=== PATIENT | female | born 2000 | race Caucasian/White ===

== ENCOUNTER 2023-05-30 15:47 | Emergency (ER) | payer OTHER, SELFPAY ==
[2023-05-30 15:50] VITALS: BP 144/112
[2023-05-30 16:13] LABS: % Basophils 0.5 % (0-2); % Immature Granulocytes 0.2 % (0-0.5); % Lymphocytes 26.6 % (20.5-51.1); % Monocytes 5.1 % (1.7-9.3); % Neutrophils 66.6 % (42.2-75.2); Absolute Basophils 0.1 10^3/uL (0-0.2); Absolute Eosinophils 0.1 10^3/uL (0-0.7); Absolute Lymphocytes 2.6 10^3/uL (1.2-3.4); Absolute Monocytes 0.5 10^3/uL (0.1-0.6); Absolute Neutrophils 6.5 10^3/uL (1.4-6.5); Hematocrit 40.3 % (37.0-47.0); Hemoglobin 13.5 g/dL (12.0-16.0); Mean Corp Hgb Conc. 33.5 g/dL (33.0-37.0); Mean Corpuscular Hgb 26.6 pg (27.0-31.0); Mean Corpuscular Volume 79.5 fL (81.0-99.0); Mean Platelet Volume 8.8 fL (7.4-10.4); Nucleated Red Blood Cells % 0 %; Platelet Count 261 10^3/uL (130-400); Red Blood Cell Count 5.07 10^6/uL (4.20-5.40); Red Cell Dist. Width 14.3 % (11.5-14.5); White Blood Cell Count 9.8 10^3/uL (4.8-10.8)
[2023-05-30 16:27] LABS: HCG, Serum Qualitative Screen Negative
[2023-05-30 16:30] LABS: ALT (SGPT) 22 U/L (0-35); AST (SGOT) 27 U/L (14-36); Albumin 4.6 g/dl (3.5-5.0); Alkaline Phosphatase 48 U/L (38-126); Blood Urea Nitrogen 14 mg/dl (7-17); Calcium 9.6 mg/dl (8.4-10.2); Carbon Dioxide 23 mmol/L (22-30); Chloride 103 mmol/L (98-107); Glucose 110 mg/dl (70-99); Potassium 3.7 mmol/L (3.5-5.1); Sodium 137 mmol/L (135-145); Total Bilirubin 0.8 mg/dl (0.2-1.3); Total Protein 7.6 g/dl (6.3-8.2); eGFR > 60.00
--- NOTE | 2023-05-30 20:08 | ED.GENMED ---
History of Present Illness
General
Chief Complaint: Headache
Source: patient
Exam Limitations: none
Time Seen by Provider: 05/30/23 19:40
Nursing documentation reviewed up to this point in time: agreed with
Travel History
Have you had any contact with someone who has COVID-19?: No
Do you have any symptoms of coronavirus? Fever > 100 degrees, chills, cough, shortness of breath, sore throat, loss of taste or smell, muscle aches, or headache?: No
History of Present Illness
History of Present Illness:
22-year-old female with history of GERD presents stating she has had daily headaches since November 2022. She states headaches are almost every day, constant pressure behind her eyes, band around her head, if she squeezes her neck really hard it
helps some of the pain. She was awakened at 10 AM today with pain in the left side base of her skull which was pulsating, it gets worse with walking and turning her head to the right. She has taken an occasional Tylenol or ibuprofen with no relief
of her headaches. Has taken nothing for this headache. She denies N/V/D/C. She denies weakness or numbness in her extremities. No photophobia. States her headache on arrival was 9/10 but at this time it is 5/10 she states this all started in
January when she went to the eye doctor and they told her she had 'nystagmus,'
She was then evaluated at [facility] which told her her eyes were healthy but they did see the nystagmus and told her 'it is a neuro thing.' She has not been able to get into any neurologist for months until finally she now has an appointment in
early June with a headache specialist
There is no significant change in her headaches, she wants a head CT for reassurance.
Past History
Past History
ED Past Medical History: Asthma and GERD
ED Past Surgical History: None
Social History
Tobacco: Non-smoker
Personal: Single
Living: with family
Employment: Employed
Review of Systems
Review of Systems
Allergies reviewed?: Yes
All Other Systems: ROS reviewed and negative except as documented in HPI and ROS
Constitutional: Denies fever
Respiratory: Denies trouble breathing
Cardiac: Denies chest pain
ABD/GI: Denies abdominal pain or nausea
Musculoskeletal: Reports no symptoms
Skin: Reports no symptoms
Neurological: Reports headache; Denies dizzy, weakness or numbness
Phy Exam
Physical Exam
Physical Exam:
GENERAL: No acute distress. A&Ox3.
CONSTITUTIONAL: Afebrile.
EYES: PERRL, conjunctivae normal
Neck: Supple
ENMT: moist mucus membranes, Pharynx nl, TMs normal
RESPIRATORY: Regular respirations, nonlabored, lungs clear.
CARDIOVASCULAR: Regular rate and rhythm, no murmurs, no rubs.
GI: Soft, nontender, normal BS
MUSCULOSKELETAL: Moves with ease. Well perfused.
SKIN: Warm, dry, pink
PSYCH: Normal mood and affect. Well kept, interactive and appropriate
NEUROLOGIC: Awake, alert and oriented. No focal neurological deficit. Cranial nerves II through XII intact ambulates well with steady gait.
Course
Orders/Labs/Results
Orders:
Orders
05/30/23 15:54
Test Result ONCE
05/30/23 15:59
CBC/With Diff [Complete Blood Count/With Diff] Urgent
Comprehensive Metabolic Panel Urgent
HCG, Serum Qualitative Screen Urgent
05/30/23 20:04
Ketorolac [Toradol] 15 mg IV NOW STA
05/30/23 20:05
CT Head W/o Iv Contrast Urgent
Comment:
Reason For Exam: chronic headaches, worse today
0.9% Sodium Chloride 1000 ml [Nss] 1,000 ml IV BOLUS
Abnormal Lab Results
05/30/23
15:59
MCV 79.5 L fL
(81.0-99.0)
MCH 26.6 L pg
(27.0-31.0)
Glucose 110 H mg/dl
(70-99)
05/30/23 15:59
05/30/23 15:59
Vital Signs
Initial and Last Documented VS:
Initial Vital Signs
Temp Pulse Resp BP Pulse Ox
97.8 F 73 18 144/112 100
05/30/23 15:50 05/30/23 15:50 05/30/23 15:50 05/30/23 15:50 05/30/23 15:50
Last Documented Vital Signs
Temp Pulse Resp BP Pulse Ox
98.7 F 80 20 144/80 98
05/30/23 20:29 05/30/23 22:37 05/30/23 22:37 05/30/23 22:37 05/30/23 22:37
MDM/Problems Addressed
Differential Diagnosis Includes:
Migraine, tension h/a
MDM/Problems Addressed:
22-year-old female with history of GERD presents stating she has had headaches since November 2022. She states headaches are almost every day, constant pressure behind her eyes, band around her head, if she squeezes her neck really hard it helps
some of the pain. She was awakened at 10 AM today with pain in the left side base of her skull which was pulsating, it gets worse with walking and turning her head to the right. She has taken an occasional Tylenol or ibuprofen with no relief of
her headaches. Has taken nothing for this headache. She denies N/V/D/C. She denies weakness or numbness in her extremities. No photophobia. States her headache on arrival was 9/10 but at this time it is 5/10 she states this all started in
January when she went to the eye doctor and they told her she had 'nystagmus,'
She was then evaluated at [facility] which told her her eyes were healthy but they did see the nystagmus and told her 'it is a neuro thing.' She has not been able to get into any neurologist for months until finally she now has an appointment in
early June with a headache specialist
Patient is afebrile, NAD
05/30/[address] normal
CBC, CMP with no clinically significant abnormality
05/30/2023 2230 PM
Pt states headache is gone.
Upon discharge, pt ambulated out with steady gait.
*Critical Care Note
Total Time (30-74mins, 75-104mins- exclusive of procedures): Not Applicable
ED Attending Note
-
Portions of this chart may have been created with voice recognition software.� Occasional wrong word or��sound alike� substitutions may have occurred due to the inherent limitations of voice recognition software.
Discharge Plan
Departure
Patient Disposition: Home (Routine Discharge)
Date of Disposition: 05/30/23
Time of Disposition: 21:13
Patient with high blood pressure during this ER visit?: No
Condition: Good
Discharge Problem:
Headache
Instructions: Headache, Adult (DC)
Prescriptions:
No Action
omeprazole
40 mg PO DAILY
Referrals:
Your, Headache Specialist [Other] - Keep scheduled appt
Activity Restrictions/Additional Instructions:
As we discussed, your head CT scan is normal.
Your lab work shows nothing worrisome.
Try combining Ibuprofen 400 mg with Tylenol 500 mg every 6 hours as needed for headache
Interventions
Interventions:
*Risk Screen - Suicide Last Done: 05/30/23 15:50
*General Assessment Last Done: 05/30/23 15:50
*Neglect/Abuse Screening Last Done: 05/30/23 15:50
ED- Fall Risk Assessment Last Done: 05/30/23 20:32
*ED COVID-19 Vaccine History Last Done: 05/30/23 20:32
*Nursing Disposition Last Done: 05/30/23 22:43
ED- Neurological Assessment Last Done: 05/30/23 20:32
Discharge Date and Time
Discharge Date/Time: 05/30/23 22:43
[2023-05-30 20:28] VITALS: BMI 21.1
[2023-05-30 20:29] VITALS: BP 108/76
[2023-05-30] MEDS: NSS 1000 IV (21:00)
[2023-05-30] MEDS: TORADOL 15 MG IV (21:00)
[2023-05-30 21:14] VITALS: BP 110/72
[2023-05-30 22:37] VITALS: BP 144/80
== END 2023-05-30 22:43 | disposition home or self-care (01) ==
LOC: EMR 15:47
PROVIDERS: Emergency Medicine; EMERGENCY PHYSICIAN Student in an Organized Health Care Education/Training Program; FAMILY PHYSICIAN Internal Medicine
DX: R51.9 Headache, unspecified (principal); K21.9 Gastro-esophageal reflux disease without esophagitis
CPT/HCPCS: 99284; 96374; 96361; 70450; 80053; 84703; 85025

== ENCOUNTER 2024-03-03 07:50 | Emergency (ER) | payer OTHER, SELFPAY ==
[2024-03-03 07:54] VITALS: BP 130/98
[2024-03-03 08:32] LABS: COVID-19 Antigen Negative (Negative)
[2024-03-03 08:38] VITALS: BMI 19.9
[2024-03-03] MEDS: ZITHROMAX 500 MG PO (08:55)
[2024-03-03] MEDS: TYLENOL 650 MG PO (08:55)
[2024-03-03] MEDS: AUGMENTIN 875 MG/125 MG 1 TABLET PO (08:56)
[2024-03-03] MEDS: TORADOL 30 MG IM (08:59)
[2024-03-03 09:18] LABS: HCG, Urine Qualitative Screen Negative
--- NOTE | 2024-03-03 09:40 | ED.GENMED ---
History of Present Illness
General
Chief Complaint: Chest Pain
Source: patient
Exam Limitations: none
Time Seen by Provider: 03/03/24 08:11
Nursing documentation reviewed up to this point in time: agreed with
History of Present Illness
History of Present Illness:
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
shortness of breath and chest pain this morning. Feels similar to previous episodes of pneumonias. Described as an achy discomfort to the right side of the chest to mild shortness of breath. Denies nausea vomiting numbness weakness. Able to
swallow and tolerate by mouth.
Past History
Past History
ED Past Medical History: Asthma and GERD
ED Past Surgical History: None
Social History
Tobacco: Non-smoker
Personal: Single
Living: with family
Employment: Employed
Review of Systems
Review of Systems
Allergies reviewed?: Yes
All Other Systems: ROS reviewed and negative except as documented in HPI and ROS
Phy Exam
Physical Exam
Physical Exam:
GENERAL: Alert , in no apparent distress
EYE: pupils equal and reactive
NECK: Supple, no significant adenopathy.
ENT: o/p clr, mmm.
CARDIAC: Regular rate and rhythm .
LUNGS: Rales right sided lung, left side clear breath sounds bilaterally, no acute respiratory distress, no wheezes/rales/rhonchi
ABDOMEN: Soft, without focal tenderness, no r/g, no cvat
NEUROLOGICAL: Alert and oriented, no focal neuro deficits
SKIN: Warm and dry, skin intact.
MUSCULOSKELETAL: No edema, well perfused.
PSYCH: Normal and appropriate interaction.
Scores
Heart Score for Chest Pain Patients
STEMI patient?: Not applicable
History: Slightly or Non-Suspicious
ECG: Normal
Age: </= 45 years
Risk Factors: No Risk Factors
Troponin: </= Normal Limit
Heart Score for Chest Pain Patients: 0
Heart Score Risk: 2.5% MACE over next 6 weeks
Course
Orders/Labs/Results
Orders:
Orders
03/03/24 07:51
ECG [Electrocardiogram (*1)] Urgent
Reason for Study: Chest Pain
EKG- Treatment ONCE
03/03/24 08:01
CXR2 [CR Chest - 2 Views ] Urgent
Comment:
Reason For Exam: chest pain and SOB
03/03/24 08:02
COVID-19 Antigen Urgent
Source: Nasal Swab
Influenza A+B Rapid Molecular Urgent
FRANCESCA Source: Nasal Swab
Specimen Description:
03/03/24 08:34
Amoxicillin 875 mg/Clav 125 mg [Augmentin 875 mg/125 mg] 1 tablet PO NOW STA
Azithromycin [Zithromax] 500 mg PO NOW STA
03/03/24 08:35
Acetaminophen [Tylenol] 650 mg PO NOW STA
Ketorolac [Toradol] 30 mg IM NOW STA
Test Result ONCE
03/03/24 09:02
, Urine Qualitative Screen [HCG, Urine Qualitative Screen] Urgent
Date Specimen was Collected: 03/03/24
Time Specimen was Collected: 08:37
03/03/24 09:38
Ipratropium/Albuterol Sulfate [Duoneb] 3 ml INH R NOW ONE
Vital Signs
Initial and Last Documented VS:
Initial Vital Signs
Temp Pulse Resp BP Pulse Ox
98.6 F 95 18 130/98 98
03/03/24 07:54 03/03/24 07:54 03/03/24 07:54 03/03/24 07:54 03/03/24 07:54
Last Documented Vital Signs
Temp Pulse Resp BP Pulse Ox
98.6 F 76 15 117/79 100
03/03/24 07:54 03/03/24 09:42 03/03/24 09:42 03/03/24 09:42 03/03/24 09:42
MDM/Problems Addressed
MDM/Problems Addressed:
23-year-old female presenting to the emergency department today with concerns of chest pain shortness of breath. Started off with viral-like illness the day prior. Upon arrival here vital signs normal patient no distress patient does have rales to
the right side of the lungs which correlate with the x-ray consistent with likely pneumonia. Patient started on antibiotics. Due to her recurrent nature of pneumonia's she was given extended coverage with Augmentin and azithromycin. Otherwise
patient generally well-appearing here in no distress stable for outpatient management of this return precautions were given.
*Critical Care Note
Total Time (30-74mins, 75-104mins- exclusive of procedures): Not Applicable
ED Attending Note
-
Portions of this chart may have been created with voice recognition software.� Occasional wrong word or��sound alike� substitutions may have occurred due to the inherent limitations of voice recognition software.
Discharge Plan
Departure
Patient Disposition: Home (Routine Discharge)
Date of Disposition: 03/03/24
Time of Disposition: 10:07
Patient with high blood pressure during this ER visit?: No
Condition: Good
Covid-19: Not Applicable
Discharge Problem:
Pneumonia
Instructions: Pneumonia in adults
Prescriptions:
New
amoxicillin-pot clavulanate 875-125 mg tablet
1 tab PO BID 7 Days Qty: 14 0RF
azithromycin 500 mg tablet
500 mg PO DAILY 2 Days Qty: 2 0RF
No Action
nortriptyline 10 mg Capsule
10 mg PO DAILY
albuterol sulfate 90 mcg/actuation Hfa Aerosol Inhaler
2 puff INHALATION PRN PRN (Reason: sob)
Depo-Provera
1 dose IM Q3M
Ivermedicine
1 dose topical DAILY
Sulfate Face Wash
1 dose topical DAILY
Referrals:
Yocasta Martinez DO [Family Provider] -
Activity Restrictions/Additional Instructions:
You came to the emergency department today with concerns of respiratory symptoms consistent with pneumonia. Please take the prescribed antibiotics and follow-up closely with your primary care doctor. Return to the emergency department any
worsening, new or concerning symptoms.
Interventions
Interventions:
*Risk Screen - Suicide Last Done: 03/03/24 07:54
*Neglect/Abuse Screening Last Done: 03/03/24 07:54
*ED COVID-19 Vaccine History Last Done: 03/03/24 07:54
ED- Cardiac Assessment Last Done: 03/03/24 08:40
Discharge Date and Time
Print Language: MOLDOVAN
[2024-03-03 09:42] VITALS: BP 117/79
[2024-03-03] MEDS: DUONEB 3 ML INH (09:46)
[2024-03-03 10:23] VITALS: BP 116/81
== END 2024-03-03 10:24 | disposition home or self-care (01) ==
LOC: EMR 07:50
PROVIDERS: Emergency Medicine; Physician Assistant; EMERGENCY PHYSICIAN Student in an Organized Health Care Education/Training Program; FAMILY PHYSICIAN Internal Medicine
DX: J18.9 Pneumonia, unspecified organism (principal); J45.909 Unspecified asthma, uncomplicated; K21.9 Gastro-esophageal reflux disease without esophagitis; Z01.810 Encounter for preprocedural cardiovascular examination
CPT/HCPCS: 99283; 94640; 71046; 81025; 87502; 87811; 93005

== ENCOUNTER 2024-04-23 14:19 | Emergency (ER) | payer OTHER, SELFPAY ==
[2024-04-23 14:21] VITALS: BP 96/60
--- NOTE | 2024-04-23 14:45 | ED.GENMED ---
History of Present Illness
General
Chief Complaint: Abdominal Symptoms
Source: patient
Time Seen by Provider: 04/23/24 14:37
History of Present Illness
History of Present Illness:
23-year-old female presents to the emergency room complaining of nausea, vomiting and abdominal discomfort. Symptoms began earlier this morning. Patient initially felt weak she had a fever due to chills. Nausea vomiting started and she is unable
to keep anything down since then. She has also developed a migraine. She does have a history of migraines. Coughing is not a major component of her symptoms at this time. She does not feel short of breath.
Past History
Past History
ED Past Medical History: Asthma and GERD
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
Social History
Tobacco: Non-smoker
Personal: Single
Living: with family
Employment: Employed
Phy Exam
Physical Exam
Physical Exam:
General: Awake, Alert, Oriented X3. Appears uncomfortable due to nausea
Vitals: Tachycardic
Head: Atraumatic
Eyes: Pupils equal, EOMI
Throat: Airway intact, no exudates, dry mucosa
Neck: Trachea midline
Lungs: Clear and equal b/l
Heart: Regular rate, no murmurs
Abd: Soft, tender diffusely, no rebound, No pulsatile mass
Neuro: Nonfocal
Skin: Warm, dry, no rash
Extremities: pulses equal b/l, no edema
Course
Orders/Labs/Results
Orders:
Orders
04/23/24 14:25
Electrocardiogram (*1) Urgent
Reason for Study: Tachycardia
EKG- Treatment ONCE
Test Result ONCE
04/23/24 14:43
Diphenhydramine [Benadryl] 25 mg IV NOW STA
Prochlorperazine [Compazine] 10 mg IV NOW STA
04/23/24 14:44
Lactated Ringers [Lr] 1,000 ml IV BOLUS
04/23/24 15:09
COVID-19 Antigen Urgent
Source: Nasal Swab
Complete Blood Count/With Diff Urgent
Comprehensive Metabolic Panel Urgent
HCG, Serum Qualitative Screen Urgent
Lipase Urgent
TSH Reflex To Free T4 Urgent
Comment: ADD ON
Influenza A+B Rapid Molecular Urgent
FRANCESCA Source: Nasal Swab
Specimen Description:
04/23/24 16:37
Ondansetron Injectable [Zofran] 4 mg .ROUTE .STK-MED ONE
04/23/24 16:38
Ondansetron Injectable [Zofran] 4 mg IV NOW STA
04/23/24 16:48
Cardiac Monitoring- Treatment ONCE
04/23/24 18:43
Electrocardiogram (*1) Urgent
Reason for Study: Tachycardia
EKG- Treatment ONCE
04/23/24 18:44
Add On- LAB Urgent
Tests Added?: tsh reflex t4
Abnormal Lab Results
04/23/24
15:09
WBC 13.9 H 10^3/uL
(4.8-10.8)
RBC 5.60 H 10^6/uL
(4.20-5.40)
MCV 74.6 L fL
(81.0-99.0)
MCH 24.5 L pg
(27.0-31.0)
MCHC 32.8 L g/dL
(33.0-37.0)
Abs Immat Gran (auto) 0.1 H 10^3/uL
(0-0.05)
Absolute Neuts (auto) 12.8 H 10^3/uL
(1.4-6.5)
Absolute Lymphs (auto) 0.4 L 10^3/uL
(1.2-3.4)
Immature Gran % 0.6 H %
(0-0.5)
Neutrophils % 92.3 H %
(42.2-75.2)
Lymphocytes % 2.7 L %
(20.5-51.1)
Carbon Dioxide 20 L mmol/L
(22-30)
Glucose 126 H mg/dl
(70-99)
ALT 39 H U/L
(0-35)
Albumin 5.3 H g/dl
(3.5-5.0)
04/23/24 15:09
04/23/24 15:09
Vital Signs
Initial and Last Documented VS:
Initial Vital Signs
Temp Pulse Resp BP Pulse Ox
99.4 F 168 18 96/60 99
04/23/24 14:21 04/23/24 14:21 04/23/24 14:21 04/23/24 14:21 04/23/24 14:21
Last Documented Vital Signs
Temp Pulse Resp BP Pulse Ox
98.9 F 162 18 136/89 97
04/23/24 17:30 04/23/24 19:00 04/23/24 14:21 04/23/24 18:39 04/23/24 18:30
MDM/Problems Addressed
Differential Diagnosis Includes:
COVID, influenza, other viral illness, pancreatitis
MDM/Problems Addressed:
Patient presents to the emergency room complaining of nausea vomiting and inability tolerate oral intake. Patient also developed a migraine. She feels much better after treatment here. However she continues to have a sinus tachycardia. I did
review the EKG with Dr. Morse. He agrees that it is sinus tachycardia and there is no need to treated and of itself. Patient is adequately hydrated now she is able to urinate. She feels fine and is anxious to be discharged. TSH added onto
blood in lab. Patient to be discharged and will follow-up with cardiology as an outpatient. Have given her contact information for [facility] encouraged her to call tomorrow morning to make an appointment.
*Pulse Oximetry
Patient hypoxic: no
*EKG
Interpreted by ED Provider?: Yes
Interpretation: abnormal
Heart Rate: 156
Rate: tachycardiac
Rhythm: sinus tachycardia
[place]: normal axis
Interval: normal interval
QRS Pattern: normal QRS
Ischemia: no ischemia
*Slab Tripper Interpretation
Rate: tachycardiac
Interpretation: abnormal
Rhythm: sinus tachycardia
*Critical Care Note
Total Time (30-74mins, 75-104mins- exclusive of procedures): Not Applicable
ED Attending Note
-
Portions of this chart may have been created with voice recognition software.� Occasional wrong word or��sound alike� substitutions may have occurred due to the inherent limitations of voice recognition software.
Discharge Plan
Departure
Patient Disposition: Home (Routine Discharge)
Date of Disposition: 04/23/24
Time of Disposition: 19:00
Patient with high blood pressure during this ER visit?: No
Condition: Good
Discharge Problem:
Nausea & vomiting, Sinus tachycardia
Instructions: Nausea and Vomiting, Adult (DC), Sinus Tachycardia (DC)
Prescriptions:
No Action
nortriptyline 10 mg Capsule
10 mg PO DAILY
albuterol sulfate 90 mcg/actuation Hfa Aerosol Inhaler
2 puff INHALATION PRN PRN (Reason: sob)
Depo-Provera
1 dose IM Q3M
Ivermedicine
1 dose topical DAILY
Sulfate Face Wash
1 dose topical DAILY
amoxicillin-pot clavulanate 875-125 mg tablet
1 tab PO BID 7 Days Qty: 14 0RF
azithromycin 500 mg tablet
500 mg PO DAILY 2 Days Qty: 2 0RF
Referrals:
Maximo Morse MD [Active] -
Yocasta Martinez DO [Family Provider] -
Activity Restrictions/Additional Instructions:
Please call Dr. Kurtz's office in the morning to make an appointment.
Interventions
Interventions:
*Risk Screen - Suicide Last Done: 04/23/24 14:21
*General Assessment Last Done: 04/23/24 14:21
*Neglect/Abuse Screening Last Done: 04/23/24 14:21
ED- Fall Risk Assessment Last Done: 04/23/24 19:05
*ED COVID-19 Vaccine History Last Done: 04/23/24 19:05
UL-Mcwdwn-Ehbwlccsnz Assessment Last Done: 04/23/24 18:47
Discharge Date and Time
Print Language: THAI
[2024-04-23] MEDS: LR 1000 IV (14:56)
[2024-04-23] MEDS: COMPAZINE 10 MG IV (14:56)
[2024-04-23] MEDS: BENADRYL 25 MG IV (14:57)
[2024-04-23 15:20] VITALS: BMI 20.4
[2024-04-23 15:24] LABS: % Basophils 0.3 % (0-2); % Eosinophils 0.1 % (0-6); % Immature Granulocytes 0.6 % (0-0.5); % Lymphocytes 2.7 % (20.5-51.1); % Neutrophils 92.3 % (42.2-75.2); Absolute Immature Granulocytes 0.1 10^3/uL (0-0.05); Absolute Lymphocytes 0.4 10^3/uL (1.2-3.4); Absolute Monocytes 0.6 10^3/uL (0.1-0.6); Absolute Neutrophils 12.8 10^3/uL (1.4-6.5); Hematocrit 41.8 % (37.0-47.0); Hemoglobin 13.7 g/dL (12.0-16.0); Mean Corp Hgb Conc. 32.8 g/dL (33.0-37.0); Mean Corpuscular Hgb 24.5 pg (27.0-31.0); Mean Corpuscular Volume 74.6 fL (81.0-99.0); Mean Platelet Volume 9.2 fL (7.4-10.4); Nucleated Red Blood Cells % 0 %; Platelet Count 217 10^3/uL (130-400); Red Cell Dist. Width 13.4 % (11.5-14.5); White Blood Cell Count 13.9 10^3/uL (4.8-10.8)
[2024-04-23 15:32] LABS: HCG, Serum Qualitative Screen Negative
[2024-04-23 15:35] LABS: ALT (SGPT) 39 U/L (0-35); AST (SGOT) 32 U/L (14-36); Albumin 5.3 g/dl (3.5-5.0); Alkaline Phosphatase 68 U/L (38-126); Blood Urea Nitrogen 17 mg/dl (7-17); Calcium 9.9 mg/dl (8.4-10.2); Carbon Dioxide 20 mmol/L (22-30); Chloride 102 mmol/L (98-107); Estimated Creatinine Clearance 111 ml/min; Glucose 126 mg/dl (70-99); Potassium 4.3 mmol/L (3.5-5.1); Sodium 138 mmol/L (135-145); Total Bilirubin 1.3 mg/dl (0.2-1.3); eGFR > 60.00
[2024-04-23 15:40] LABS: COVID-19 Antigen Negative (Negative)
[2024-04-23] MEDS: ZOFRAN 4 MG IV (16:39)
[2024-04-23 16:49] LABS: Lipase 159 U/L (23-300)
[2024-04-23 18:39] VITALS: BP 136/89
[2024-04-23 20:22] LABS: TSH Reflex To Free T4 0.83 uIU/ml (0.47-4.68)
== END 2024-04-23 19:32 | disposition home or self-care (01) ==
LOC: EMR 14:19
PROVIDERS: EMERGENCY PHYSICIAN Emergency Medicine; FAMILY PHYSICIAN Internal Medicine
DX: R11.2 Nausea with vomiting, unspecified (principal); J45.909 Unspecified asthma, uncomplicated; K21.9 Gastro-esophageal reflux disease without esophagitis; R00.0 Tachycardia, unspecified
CPT/HCPCS: 99283; 96374; 96375; 96361; 80053; 83690; 84443; 84703; 85025; 87502; 87811; 93005

== ENCOUNTER → 2024-07-22 13:48 | Outpatient (REF) | payer OTHER, SELFPAY | LOC: HWRCS 13:48 | PROVIDERS: ATTENDING PHYSICIAN Internal Medicine Cardiovascular Disease; FAMILY PHYSICIAN Internal Medicine | DX: R00.2 Palpitations (principal) | CPT/HCPCS: 93306 ==